=== PATIENT | female | born 1955 | race Hispanic/Latino ===

== ENCOUNTER 2018-06-25 15:37 | Emergency (ER) | payer OTHER ==
[~2018-06-25 15:37] MED LIST: HYDR200T4 PO; INSLAN SQ; INSU100C14 SQ; LEVO200 PO; LINA5TAB PO; LISI-617 PO; METF-444 PO; SIMV80TA7 PO
[2018-06-25] MEDS ORDERED: TETANUS/DIPHTHERIA TOXOID [ADULT] 0.5 ML VIAL IM ONE (16:05)
== END 2018-06-25 16:13 | disposition home or self-care (01) ==
LOC: EDH 15:37
DX: S01.01XA Laceration without foreign body of scalp, initial encounter (principal); E78.5 Hyperlipidemia, unspecified; I10 Essential (primary) hypertension; E07.9 Disorder of thyroid, unspecified; Z90.710 Acquired absence of both cervix and uterus; Z85.9 Personal history of malignant neoplasm, unspecified; W22.8XXA Striking against or struck by other objects, initial encounter; Y93.89 Activity, other specified; Y92.098 Other place in other non-institutional residence as the place of occurrence of the external cause; Y99.8 Other external cause status; E11.9 Type 2 diabetes mellitus without complications
CPT/HCPCS: 12001; 90471; 90714

== ENCOUNTER 2018-08-04 19:51 | Emergency (ER) | payer OTHER ==
[2018-08-04 20:13] LABS: APPEARANCE,URINE Clear (CLEAR); BILIRUBIN,URINE Negative (NEGATIVE); COLOR,URINE Yellow (YELLOW); GLUCOSE, URINE (UA) Negative (NEGATIVE); KETONES,URINE Trace mg/dL (NEGATIVE); LEUKOCYTE ESTERASE ,URINE Trace (NEGATIVE); NITRATE,URINE Negative (NEGATIVE); OCCULT BLOOD,URINE Negative (NEGATIVE); PROTEIN,URINE Negative (NEGATIVE)
[2018-08-04 20:25] LABS: BACTERIA,URINE Rare /HPF (None Seen); RBC,URINE 0-1 /HPF (0-1); SQUAMOUS EPITHELIAL CELL,UR 0-2 /HPF (0-2); WBC,URINE 0-1 /HPF (0-1)
[2018-08-04 20:32] LABS: RAPID GROUP A STREP NEGATIVE (NEGATIVE)
[2018-08-04] MEDS ORDERED: ALBUTEROL SULFATE 0.083% 2.5 MG/3 ML INH IH ONE (21:23)
== END 2018-08-04 23:25 | disposition home or self-care (01) ==
LOC: EDH 19:51
DX: J98.01 Acute bronchospasm (principal); R42 Dizziness and giddiness; I10 Essential (primary) hypertension; E11.9 Type 2 diabetes mellitus without complications; E78.5 Hyperlipidemia, unspecified; E07.9 Disorder of thyroid, unspecified; Z79.4 Long term (current) use of insulin; Z90.710 Acquired absence of both cervix and uterus; Z98.890 Other specified postprocedural states
CPT/HCPCS: 71045; 81001; 87804; 87880; 93005; 94640

== ENCOUNTER → 2019-02-19 | Outpatient (CLI) | payer OTHER ==
[~2019-02-19] MED LIST changes: -SIMV80TA7 PO; +SIMV80TA91 PO
== END | disposition home or self-care (01) ==
LOC: RAH 14:51
PROVIDERS: ATTEND Internal Medicine Hematology & Oncology
DX: I82.402 Acute embolism and thrombosis of unspecified deep veins of left lower extremity (principal); E11.9 Type 2 diabetes mellitus without complications; I10 Essential (primary) hypertension; E78.5 Hyperlipidemia, unspecified; E03.9 Hypothyroidism, unspecified; Z98.890 Other specified postprocedural states; G47.33 Obstructive sleep apnea (adult) (pediatric); M19.90 Unspecified osteoarthritis, unspecified site; Z86.73 Personal history of transient ischemic attack (TIA), and cerebral infarction without residual deficits
CPT/HCPCS: 93971

== ENCOUNTER 2019-08-14 00:51 | Emergency (ER) | payer OTHER ==
[2019-08-14] MEDS ORDERED: OCTYL 2-CYANOACRYLATE 1 EACH TP ONE (01:04)
[2019-08-14] MEDS ORDERED: ACETAMINOPHEN 325 MG TAB ONE (01:04)
[2019-08-14] MEDS ORDERED: ONDANSETRON HCL 4 MG/2 ML VIAL ONE (02:00)
[2019-08-14] MEDS ORDERED: FAMOTIDINE/PF 20 MG/2 ML VIAL IV ONE (02:00)
== END 2019-08-14 01:59 | disposition home or self-care (01) ==
LOC: EDH 00:51
DX: S01.81XA Laceration without foreign body of other part of head, initial encounter (principal); S63.91XA Sprain of unspecified part of right wrist and hand, initial encounter; R07.89 Other chest pain; E11.9 Type 2 diabetes mellitus without complications; I10 Essential (primary) hypertension; Z90.710 Acquired absence of both cervix and uterus; E78.5 Hyperlipidemia, unspecified; W18.39XA Other fall on same level, initial encounter; Y93.01 Activity, walking, marching and hiking; Y92.89 Other specified places as the place of occurrence of the external cause; Y99.8 Other external cause status
CPT/HCPCS: 12011; 71045; 73130; J2405; J3490

== ENCOUNTER 2020-01-01 07:56 | Day surgery (SDC) | payer OTHER ==
[~2020-01-01] VITALS: Ht 147.3 cm; Wt 74.4 kg
[2020-01-01] VITALS (9 sets, daily range): BP systolic 110–142; BP diastolic 45–74
[~2020-01-01 07:56] MED LIST changes: +SODIUM CHLORIDE 0.9% 1000ML 1,000 ML IV ONE
[2020-01-01] MEDS ORDERED: INSU100I24 SQ (09:35)
[2020-01-01] MEDS ORDERED: CITA-107 PO (09:35)
[2020-01-01] MEDS ORDERED: SIMV-46 PO (09:35)
[2020-01-01] MEDS ORDERED: BACL10TA PO (09:35)
[2020-01-01] MEDS ORDERED: PROPOFOL 10 MG/ML 20ML VIAL IV ONE (09:46)
[2020-01-01] MEDS ORDERED: GLYCOPYRROLATE 1 MG/5 ML SYRINGE ONE (10:24)
== END 2020-01-01 10:50 | disposition home or self-care (01) ==
LOC: ENDO 07:56 → DAH 07:56 → ENDO 10:50
PROVIDERS: ATTEND Internal Medicine Gastroenterology
DX: D12.3 Benign neoplasm of transverse colon (principal); Z11.59 Encounter for screening for other viral diseases; D12.2 Benign neoplasm of ascending colon; K57.30 Diverticulosis of large intestine without perforation or abscess without bleeding; K64.0 First degree hemorrhoids; I10 Essential (primary) hypertension; R19.7 Diarrhea, unspecified; E11.9 Type 2 diabetes mellitus without complications; E03.9 Hypothyroidism, unspecified; E78.5 Hyperlipidemia, unspecified; M19.90 Unspecified osteoarthritis, unspecified site; Z79.84 Long term (current) use of oral hypoglycemic drugs; Z79.899 Other long term (current) drug therapy; Z90.710 Acquired absence of both cervix and uterus; Z86.010 Personal history of colon polyps; Z98.890 Other specified postprocedural states; Z79.4 Long term (current) use of insulin; Z83.3 Family history of diabetes mellitus; Z82.49 Family history of ischemic heart disease and other diseases of the circulatory system
CPT/HCPCS: 36415; 45380; 87635; 88305; A4215; A4221; A4222; A4223; A4606; A4620; A4663; J2704; J7030; 43200; J3490

== ENCOUNTER → 2022-01-22 | Outpatient (CLI) | payer OTHER ==
[~2022-01-22] MED LIST changes: +BACL10TA PO; +CITA-107 PO; -HYDR200T4 PO; -INSLAN SQ; -INSU100C14 SQ; +INSU100I24 SQ; -LISI-617 PO; +LISI5TAB21 PO; +SIMV-46 PO; -SIMV80TA91 PO; -SODIUM CHLORIDE 0.9% 1000ML 1,000 ML IV ONE
== END | disposition home or self-care (01) ==
LOC: RAH 08:02
PROVIDERS: ATTEND Internal Medicine Gastroenterology
DX: R10.13 Epigastric pain (principal)
CPT/HCPCS: 78264; A9541

== ENCOUNTER → 2023-06-17 | Outpatient (CLI) | payer OTHER ==
[~2023-06-17] MED LIST changes: +REGADENOSON 0.4 MG/5 ML PF SYG IVP ONE
== END | disposition home or self-care (01) ==
LOC: SHCH 07:34
PROVIDERS: ATTEND Internal Medicine Cardiovascular Disease
DX: R06.09 Other forms of dyspnea (principal)
CPT/HCPCS: 78452; 93017; J2785; A9500 ×2; 96374

== ENCOUNTER → 2023-06-18 | Outpatient (CLI) | payer OTHER ==
[~2023-06-18] MED LIST changes: -REGADENOSON 0.4 MG/5 ML PF SYG IVP ONE
== END | disposition home or self-care (01) ==
LOC: SHCH 09:15
PROVIDERS: ATTEND Internal Medicine Cardiovascular Disease
DX: I65.23 Occlusion and stenosis of bilateral carotid arteries (principal); R09.89 Other specified symptoms and signs involving the circulatory and respiratory systems
CPT/HCPCS: 93880

== ENCOUNTER 2024-06-28 09:56 | Emergency (ER) | payer OTHER ==
[~2024-06-28] VITALS: Ht 147.3 cm; Wt 63.5 kg
[2024-06-28 10:31] LABS: BASOPHILS # (AUTO) 0.03 K/uL (0.00-0.20); BASOPHILS % (AUTO) 0.3 % (0.0-5.0); HEMATOCRIT 37.7 % (36-48); IMMATURE GRANULOCYTE ABSOLUTE 0.02 K/uL (0-1); LYMPHOCYTES # (AUTO) 0.7 K/uL (1.0-4.8); LYMPHOCYTES % (AUTO) 7.9 % (21.0-51.0); MEAN CORPUSCULAR HEMOGLOBIN 29.4 pg (27.0-33.0); MEAN CORPUSCULAR VOLUME 86.5 fL (79-99); MONOCYTES # (AUTO) 0.5 K/uL (0.1-1.0); MONOCYTES % (AUTO) 5.1 % (3.0-13.0); NEUTROPHILS # (AUTO) 7.7 K/uL (1.8-7.7); NEUTROPHILS % (AUTO) 86.5 % (40.0-77.0); PLATELET COUNT (AUTO) 256 K/uL (130-400); RED BLOOD CELL COUNT(AUTO) 4.36 MIL/uL (4.00-5.50); RED CELL DISTRIBUTION WIDTH 13.2 % (11.0-15.5)
[2024-06-28 10:57] VITALS: TEMP 98.2
--- NOTE | 2024-06-28 11:01 | ERN ---
General Chief Complaint: Abdominal Pain Stated Complaint: ABD PAIN Time Seen by MD: 10:08 Time Seen by Midlevel: 10:08 Source: patient History of Present Illness Initial Comments Patient is a 69-year-old female with a past medical history of type 2 diabetes, hypertension, and thyroid disorder who presents to the emergency department with midepigastric abdominal pain and associated nausea and vomiting that started last night. Patient reports eating chicken with vegetables along with rest of her family however she was the only one that developed symptoms. She does report being on Mounjaro over the last two months. She specifically denies any fever, chills, chest pain, shortness for breath, or any other symptoms at this time. Allergies: Coded Allergies: No Known Allergies (Unverified Allergy, Unknown, 01/07/16) Home Meds Reported Medications Citalopram Hydrobromide (Citalopram HBr) 20 Mg Tablet, 20 MG PO DAILY, TAB 01/01/20 Baclofen (Baclofen) 10 Mg Tablet, 10 MG PO DAILY, TAB 01/01/20 Insulin Degludec (Tresiba Flextouch U-100) 100 Unit/1 Ml Insuln.pen, 74 UNITS SQ DAILY, SYRINGE 01/01/20 Simvastatin (Simvastatin) 40 Mg Tablet, 40 MG PO HS, TAB 01/01/20 Lisinopril (Lisinopril) 5 Mg Tablet, 5 MG PO DAILY, TAB 05/17/16 Metformin HCl (Metformin HCl) 500 Mg Tablet, 500 MG PO DAILY, TAB 05/17/16 Linagliptin (Tradjenta) 5 Mg Tablet, 5 MG PO DAILY, TAB 05/17/16 Levothyroxine Sodium (Levothroid/Synthroid) 200 Mcg Tab, 200 MCG PO ACBKFST, TAB 01/07/16 Past Medical History Past Medical History: Diabetes-Type II, High Cholesterol, Hypertension, Hyperthyroid Past Surgical History: Hysterectomy Surgical History Other: RT SHOULDER SX, FACIAL TUMOR REMOVAL Social History Social History: Negative ROS Dictation CONSTITUTIONAL: Negative except for HPI HEAD/FACE: Negative except for HPI EENT: Negative except for HPI RESPIRATORY: Negative except for HPI GASTROINTESTINAL/ABDOMINAL: Negative except for HPI GENITOURINARY: Negative except for HPI MUSCULOSKELETAL: Negative except for HPI INTEGUMENTARY: Negative except for HPI NEUROLOGICAL/PSYCH: Negative except for HPI HEMATOLOGIC/LYMPHATIC: Negative except for HPI All Systems Negative, Except as noted above. 13 point review of systems assessed and all negative except for above. Physical Exam Physical Exam Dictation Vital Signs reviewed General Appearance: Alert, oriented x 3, no acute distress, well developed, nourished. Head and Face: non-traumatic. Eyes: PERRL, pink conjunctivas, eyelid no trauma, anterior chamber with arcus senilis. Ears: Pinnas intact and no signs of trauma or erythema ear canals clear and no discharge TM no erythema Nose: No discharge, no bleeding. Oropharynx: Mouth normal, tongue pink, pharynx clear,no erythema, tonsils no exudates, no abscesses noted, mucous membrane moist Neck: Supple, non-tender, no thyromegaly, no masses, no JVD, no bruits Breast:Deferred Chest:No tenderness, no crepitus, no paradoxical movement, no retractions Lungs:Clear, well-ventilated, symmetric, no rales, no wheezing, no rhonchi, no stridor, good breath sounds bilaterally Heart: Regular rate, regular rhythm, no murmur, no gallops Vascular: no peripheral edema, Abdomen: Soft, positive bowel sounds, nondistended, no guarding, Midepigastric abdominal tenderness, no rebound, no masses no hepatomegaly, no splenomegaly, no Cruz's sign, no hernias. Rectal: Deferred Genital: Deferred Neurological: Normal speech, motor function intact, sensory function intact Musculoskeletal: Neck nontender, full range of motion, back nontender, full range of motion, Extremities: nontender, full range of motion Skin: Color pink, dry, no turgor, no rash, no lacerations, no abrasions, no c ontusions. Lymphatic: Deferred Results Laboratory and Microbiology Lab and Micro Result Laboratory Tests Test 06/28/24 10:24 06/28/24 10:40 White Blood Count 9.0 K/uL (4.8-10.8) Red Blood Count 4.36 MIL/uL (4.00-5.50) Hemoglobin 12.8 g/dL (12.0-16.0) Hematocrit 37.7 % (36-48) Mean Corpuscular Volume 86.5 fL (79-99) Mean Corpuscular Hemoglobin 29.4 pg (27.0-33.0) Mean Corpuscular Hemoglobin Concent 34.0 g/dL (32.0-36.0) Red Cell Distribution Width 13.2 % (11.0-15.5) Platelet Count 256 K/uL (130-400) Mean Platelet Volume 10.4 fL (7.5-10.5) Immature Granulocyte % (Auto) 0.2 % (0-1) Neutrophils (%) (Auto) 86.5 % (40.0-77.0) H Lymphocytes (%) (Auto) 7.9 % (21.0-51.0) L Monocytes (%) (Auto) 5.1 % (3.0-13.0) Eosinophils (%) (Auto) 0.0 % (0.0-8.0) Basophils (%) (Auto) 0.3 % (0.0-5.0) Neutrophils # (Auto) 7.7 K/uL (1.8-7.7) Lymphocytes # (Auto) 0.7 K/uL (1.0-4.8) L Monocytes # (Auto) 0.5 K/uL (0.1-1.0) Eosinophils # (Auto) 0.00 K/uL (0.00-0.70) Basophils # (Auto) 0.03 K/uL (0.00-0.20) Absolute Immature Granulocyte (auto 0.02 K/uL (0-1) Nucleated Red Blood Cells 0.0 % (0.0-0.19) White Cell Morphology Comment See comments Sodium Level 142 mmol/L (136-145) Potassium Level 4.7 mmol/L (3.5-5.1) Chloride Level 100 mmol/L (101-111) L Carbon Dioxide Level 28 mmol/L (21-32) Blood Urea Nitrogen 26 mg/dL (7-18) H Creatinine 1.3 mg/dL (0.5-1.0) H Glomerular Filtration Rate Calc 45 mL/min (>90) Random Glucose 269 mg/dL (70-105) H Total Calcium 9.6 mg/dL (8.5-10.1) Total Bilirubin 0.6 mg/dL (0.2-1.0) Direct Bilirubin 0.1 mg/dL (0.0-0.3) Aspartate Amino Transf (AST/SGOT) 25 U/L (10-37) Alanine Aminotransferase (ALT/SGPT) 21 U/L (12-78) Alkaline Phosphatase 90 U/L (50-136) Total Protein 7.9 g/dL (6.0-8.3) Albumin 3.7 g/dL (3.5-5.0) Lipase 32 U/L (16-77) Urine Color YELLOW (YELLOW) Urine Appearance CLEAR (CLEAR) Urine pH 5.5 (5.0-8.0) Urine Specific Dunnigan 1.025 (1.001-1.031) Urine Protein 50 (1+) mg/dL (NEGATIVE) H Urine Glucose (UA) NEGATIVE mg/dL (NEGATIVE) Urine Ketones NEGATIVE mg/dL (NEGATIVE) Urine Occult Blood NEGATIVE (NEGATIVE) Urine Nitrate NEGATIVE (NEGATIVE) Urine Bilirubin NEGATIVE mg/dL (NEGATIVE) Urine Urobilinogen 0.2 mg/dL (0.2-1.0) Urine Leukocyte Esterase NEGATIVE Terrence/uL Urine RBC 0-1 /HPF (0-1) Urine WBC 2-5 /HPF (0-1) H Urine Bacteria Rare /HPF (None Seen) Labs Reviewed?: Yes MDM MDM: Patient is a 69-year-old female with a past medical history of type 2 diabetes, hypertension, and thyroid disorder who presents to the emergency department with midepigastric abdominal pain and associated nausea and vomiting that started last night. Patient reports eating chicken with vegetables along with rest of her family however she was the only one that developed symptoms. She does report being on Mounjaro over the last two months. She specifically denies any fever, chills, chest pain, shortness for breath, or any other symptoms at this time. On physical examination patient is actively vomiting. She has mild midepigastric abdominal tenderness. Her initial vital signs are stable. Patient is afebrile. Her CBC shows no leukocytosis. Hemoglobin and platelets are normal. Her chemistries show a slight bump in BUN creatinine which is consistent with mild dehydration. Patient was started on IV fluids and was given Zofran and Pepcid in the ER. Her vomiting has completely resolved. A CT scan of the abdomen/pelvis was obtained to rule out acute cholecystitis versus pancreatitis versus gastroenteritis. CT scan is remarkable for gastric distention which may be related to gastroenteritis. An early bowel obstruction can not be excluded however clinically patient is in no acute distress after IV fluids and medication. She is not actively vomiting. Symptoms most likely gastroenteritis. We will discharged home with supportive management. Differential diagnosis: Pancreatitis, acute cholecystitis, gastroenteritis There are no social concerns with this patient. Prescription drug management Prescriptions will include: Zofran and Pepcid Medical management and examination interpretation discussions were had by me with other qualified healthcare professionals as indicated for the patient's care. ED Course Orders Procedure Category Date Status Time Cbc With Differential LAB 06/28/24 Complete 10:04 Urinalysis Profile LAB 06/28/24 Complete 10:04 Basic Metabolic Panel LAB 06/28/24 Complete 10:04 Hepatic Function Panel LAB 06/28/24 Complete 10:11 Lipase LAB 06/28/24 Complete 10:11 Ct Abdomen/Pelvis CT 06/28/24 Resulted W/Contrast 10:21 Ondansetron 4mg Inj PHA 06/28/24 Complete (Zofran 4mg Inj) 10:30 Famotidine 20mg Vial PHA 06/28/24 Complete (Pepcid 20mg Vial) 10:30 0.9%Nacl 1000ml (Ns PHA 06/28/24 Complete 1000ml) 10:30 Iohexol (Omnipaque) PHA 06/28/24 Complete 11:26 Current Medications Medications (Trade) Dose Ordered Sig/Rupa Route PRN Reason Start Time Stop Time Status Last Admin Dose Admin Famotidine (Pepcid 20mg Vial) 20 mg ONCE ONCE IV 06/28/24 10:30 06/28/24 10:31 DC 06/28/24 11:21 Iohexol (Omnipaque) 35,000 mg STK-MED ONCE IV 06/28/24 11:26 06/28/24 11:26 DC Ondansetron HCl (zoFRAN 4MG INJ) 4 mg ONCE ONCE IVP 06/28/24 10:30 06/28/24 10:31 DC 06/28/24 11:21 Sodium Chloride 1,000 ml @ 0 mls/hr ONCE ONCE IV 06/28/24 10:30 06/28/24 10:31 DC 06/28/24 11:21 Vital Signs Date Time Temp Pulse Resp B/P (MAP) Pulse Ox O2 Delivery O2 Flow Rate FiO2 06/28/24 12:31 96 18 146/89 99 Room Air* 0 06/28/24 10:57 98.2 76 19 164/72 98 Room Air* 0 06/28/24 10:00 98.2 72 18 167/77 98 [facility] [address] [place] [address] IMAGING REPORT Signed PATIENT: ANUP BAUTISTA MR#: [id number] : 1955 SEX: F AGE: 69 LOCATION: [facility] ORDER 1022 STATUS: REG ER REPORT#: [id number] SERVICE 1021 REASON: n/v/d/ ABD PAIN ORDERING PHYSICIAN: ABDON BYRNES PROCEDURE: ABD PEL W - CT ABDOMEN/PELVIS W/CONTRAST CT ABDOMEN/PELVIS W/CONTRAST HISTORY: Nausea, vomiting and abdominal pain COMPARISON: None TECHNIQUE: Multiple sequential axial images of the abdomen and pelvis were obtained from the dome of the diaphragm through symphysis pubis. Patient was given 100 cc of Omnipaque through intravenous route. Oral contrast was not given. FINDINGS: No pleural effusion is seen bilaterally. There is no evidence of parenchymal disease or pulmonary nodule of the visualized lower lungs. Degenerative changes of the thoracolumbar spine are present. The heart is not enlarged. Liver measures 16 cm. There is gastric distention and small bowel dilatation may be related to gastroenteritis. Early bowel obstruction not excluded. The liver, spleen, adrenal glands and pancreas are unremarkable. There is no evidence of hydronephrosis bilaterally. No evidence of renal stone is seen. Fecal material is seen in the colon. There are normal size retroperitoneal and mesenteric lymph nodes. No ascites is seen. No CT evidence of acute appendicitis is seen. Pelvic sidewalls are symmetric bilaterally. Bladder is poorly distended. IMPRESSION: 1. There is gastric distention and small bowel dilatation may be related to gastroenteritis. Early bowel obstruction not excluded. CT was performed with one or more following dose reduction techniques: automated exposure control, adjustment of the mA and kv according to patient's size, or use of a iterative reconstruction technique. DICTATED BY: JAY HUGGINS MD DATE: 06/28/248 ELECTRONICALLY SIGNED BY: JAY HUGGINS MD DATE: 06/28/24 1241 DX & DISP Disposition: Discharge Departure Impression: Primary Impression: Gastroenteritis Condition: Stable Scripts Famotidine (Pepcid) 20 Mg Tablet 1 TAB PO BID for 5 Days, #10 TAB 0 Refills Prov: ABDON BYRNES 06/28/24 Ondansetron (Ondansetron Odt) 4 Mg Tab.rapdis 4 MG PO BID for 7 Days, #14 TAB Prov: ABDON BYRNES 06/28/24 Additional Instructions: Your blood work today is unremarkable. Your urinalysis does not show any evidence of infection. Your liver function tests along with your lipase which is a marker for pancreatitis is normal. Your CT scan of the abdomen/pelvis reveals gastric distention which may be related to gastroenteritis. I have given you a prescription for Zofran and Pepcid which should help with your symptoms. Follow up with your primary care doctor in 2-3 days for repeat evaluation. Return to the ER for any new or worsening symptoms. Referrals: ROMIE MERINO MD (PCP) Time of Disposition: 12:47 I have reviewed the case, and I agree with, Diagnosis and Plan I performed the substantive portion of the visit. I have reviewed and personally made and approve the management plan that is documented in the note by myself or the PARUL. I acknowledge for responsibility for the patient's management plan. ABDON BYRNES Jun 28, 2024 11:01
[2024-06-28 11:18] LABS: ALBUMIN 3.7 g/dL (3.5-5.0); BILIRUBIN,DIRECT 0.1 mg/dL (0.0-0.3); BILIRUBIN,TOTAL 0.6 mg/dL (0.2-1.0); TOTAL PROTEIN, SERUM 7.9 g/dL (6.0-8.3)
[2024-06-28] MEDS: FAMOTIDINE 20MG VIAL IV ONE (11:21)
[2024-06-28] MEDS: 0.9%NACL 1000ML 1,000 ML IV ONE (11:21)
[2024-06-28] MEDS: ondanSETRON 4MG INJ IVP ONE (11:21)
[2024-06-28] MEDS ORDERED: IOHEXOL 350 MG/ML 100ML INFUS..BTL IV ONE (11:26)
[2024-06-28 11:50] LABS: APPEARANCE,URINE CLEAR (CLEAR); COLOR,URINE YELLOW (YELLOW); GLUCOSE, URINE (UA) NEGATIVE (NEGATIVE); OCCULT BLOOD,URINE NEGATIVE (NEGATIVE); PH,URINE 5.5 (5.0-8.0); PROTEIN,URINE 50 (1+) mg/dL (NEGATIVE)
[2024-06-28 11:50] LABS: CREATININE 1.3 mg/dL (0.5-1.0); POTASSIUM 4.7 mmol/L (3.5-5.1)
[2024-06-28 11:51] LABS: BILIRUBIN,URINE NEGATIVE (NEGATIVE); KETONES,URINE NEGATIVE (NEGATIVE); LEUKOCYTE ESTERASE ,URINE NEGATIVE Leu/uL (NEGATIVE); NITRATE,URINE NEGATIVE (NEGATIVE); UROBILINOGEN,URINE 0.2 mg/dL (0.2-1.0)
[2024-06-28 11:52] LABS: ADD UA MICROSCOPIC YES; RBC,URINE 0-1 /HPF (0-1)
[2024-06-28 11:53] LABS: BACTERIA,URINE Rare /HPF (None Seen)
[2024-06-28 12:31] VITALS: BP 146/89; PULSE 96; RESP 18; O2SAT 99
--- NOTE | 2024-06-28 12:41 | HMCIMG ---
CT ABDOMEN/PELVIS W/CONTRAST HISTORY: Nausea, vomiting and abdominal pain COMPARISON: None TECHNIQUE: Multiple sequential axial images of the abdomen and pelvis were obtained from the dome of the diaphragm through symphysis pubis. Patient was given 100 cc of Omnipaque through intravenous route. Oral contrast was not given. FINDINGS: No pleural effusion is seen bilaterally. There is no evidence of parenchymal disease or pulmonary nodule of the visualized lower lungs. Degenerative changes of the thoracolumbar spine are present. The heart is not enlarged. Liver measures 16 cm. There is gastric distention and small bowel dilatation may be related to gastroenteritis. Early bowel obstruction not excluded. The liver, spleen, adrenal glands and pancreas are unremarkable. There is no evidence of hydronephrosis bilaterally. No evidence of renal stone is seen. Fecal material is seen in the colon. There are normal size retroperitoneal and mesenteric lymph nodes. No ascites is seen. No CT evidence of acute appendicitis is seen. Pelvic sidewalls are symmetric bilaterally. Bladder is poorly distended. IMPRESSION: 1. There is gastric distention and small bowel dilatation may be related to gastroenteritis. Early bowel obstruction not excluded. CT was performed with one or more following dose reduction techniques: automated exposure control, adjustment of the mA and kv according to patient's size, or use of a iterative reconstruction technique.
[2024-06-28] MEDS ORDERED: ONDA-243 PO (12:47)
[2024-06-28] MEDS ORDERED: FAMO-136 PO (12:47)
== END 2024-06-28 13:02 | disposition home or self-care (01) ==
LOC: EDH 09:56
DX: K52.9 Noninfective gastroenteritis and colitis, unspecified (principal); E07.9 Disorder of thyroid, unspecified; E11.9 Type 2 diabetes mellitus without complications; E78.00 Pure hypercholesterolemia, unspecified; I10 Essential (primary) hypertension; Z79.4 Long term (current) use of insulin; Z79.84 Long term (current) use of oral hypoglycemic drugs; Z79.85 Long-term (current) use of injectable non-insulin antidiabetic drugs; Z79.899 Other long term (current) drug therapy; Z90.710 Acquired absence of both cervix and uterus; Z98.890 Other specified postprocedural states
CPT/HCPCS: 99285; 74177; 96374; 96375; 80076; 80048; 83690; 85025; 81001; 36415; J3490; J7030; J2405; Q9967